=== PATIENT | female | born 1965 | race Caucasian/White ===

== ENCOUNTER → 2020-02-25 09:19 | Outpatient (BNVA) | payer BC, SELFPAY | PROVIDERS: PCP Internal Medicine; Visit Provider Urology | DX: N39.0 Urinary tract infection, site not specified (principal); N20.0 Calculus of kidney | CPT/HCPCS: 99213 ==

== ENCOUNTER 2020-02-25 10:28 | Outpatient (REF) | payer BC, SELFPAY ==
[2020-02-25 14:08] LABS: Glucose Urine UA NEG (NEG); Leukocyte Esterase Urine 1+ (NEG); Nitrite Urine POS (NEG); Urine Blood 2+ (NEG); Urine Ketones NEG (NEG); Urine Protein TRACE MG/DL (NEG-TRACE)
[2020-02-25 14:10] LABS: Appearance Urine CLOUDY; Color Urine YELLOW
[2020-02-25 14:26] LABS: Bacteria Urine 2+ /LPF; Mucus Urine 2+ /LPF; Squamous Epithelial Cell Urine TRACE /LPF; WBC Urine 50-75 /HPF (0-4)
== END 2020-02-25 10:29 | disposition home or self-care (01) ==
LOC: HO.10HDL 10:28
PROVIDERS: Visit Provider Urology
DX: N20.0 Calculus of kidney (principal)
CPT/HCPCS: 81001; 81003; 87086; 87088; 87186

== ENCOUNTER → 2020-03-03 11:07 | Outpatient (BNVA) | payer BC, SELFPAY | PROVIDERS: PCP Internal Medicine; Visit Provider Urology | DX: N20.0 Calculus of kidney (principal); N39.0 Urinary tract infection, site not specified; B96.20 Unspecified Escherichia coli [E. coli] as the cause of diseases classified elsewhere ==

== ENCOUNTER 2020-04-13 14:12 | Outpatient (REF) | payer BC, SELFPAY ==
[2020-04-21 18:43] LABS: URO-Brushite 24 Hr Urine 1.97 (<2.00); URO-Calcium 24 Hr Urine 150 mg/day (<250.0); URO-Calcium Oxalat 24 Hr Urine 2.78 (<2.00); URO-Citric Acid 24 Hr Urine 312 mg/day (>320); URO-Creatinine 24 Hr Urine 1156 mg/day (600-1800); URO-Magnesium 24 Hr Urine 113 mg/day (>60.0); URO-Oxalate 24 Hr Urine 23 mg/day (<45); URO-Phosphorus 24 Hr Urine 655 mg/day (<1100); URO-Potassium 24 Hr Urine 23 mEq/day (19-135); URO-Sodium 24 Hr Urine 73 mEq/day (<200); URO-Sodium Urate 24 Hr Urine 3.16 (<2.00); URO-Sulfate 24 Hr Urine 8 mmol/day (<30); URO-Total Volume 0.87 L/day (>2.00); URO-Uric Acid 24 Hr Urine 3.51 (<2.00); URO-Uric Acid 24 Hr Urine 518 mg/day (<700); URO-pH 24 Hr Urine 5.8 (5.5-7.0)
== END 2020-04-13 14:13 | disposition home or self-care (01) ==
LOC: HO.LNP 14:12
PROVIDERS: Visit Provider Urology
DX: N39.0 Urinary tract infection, site not specified (principal); N20.0 Calculus of kidney; B96.20 Unspecified Escherichia coli [E. coli] as the cause of diseases classified elsewhere
CPT/HCPCS: 82340; 82507; 82570; 83735; 83945; 83986; 84105; 84133; 84300; 84392; 84560